=== PATIENT | female | born 1990 | race Caucasian/White ===

== ENCOUNTER 2017-10-13 02:10 | Emergency (ER) | payer OTHER ==
[2017-10-13 03:08] VITALS: BP 107/75; PULSE 89; TEMP 97.3; BMI 33.9
[2017-10-13] MEDS ORDERED: ONDANSETRON 4 MG/2 ML VIAL IVPUSH ONE (03:11)
[2017-10-13] MEDS ORDERED: SODIUM CHLORIDE 1,000 ML IV STA (03:11)
--- NOTE | 2017-10-13 03:11 | PDOC ---
History of Present Illness - General Chief Complaint: Nausea/Vomiting Stated Complaint: VOMITING,CHILLS Time Seen by Provider: 10/13/17 02:51 History Source: Patient Exam Limitations: No Limitations - History of Present Illness Travel History: No Initial Comments: 10/13/17 03:22 This is a 27-year-old woman without significant past medical history who presents emergency Department with nausea and vomiting status post drinking today. She reports she had a couple glasses wine followed by a couple of beers followed by hard liquor. At that point she began to feel nauseous and started vomiting clear liquids. She denies any blood or bile noted in the vomitus. Patient has not tried to eat since vomiting earlier tonight. Patient is accompanied emergency department by her significant other who does not drink. Past History - Past Medical History Allergies/Adverse Reactions: Allergies Allergy/AdvReac Type Severity Reaction Status Date / Time No Known Allergies Allergy Verified 10/13/17 03:08 - Suicide/Smoking/Psychosocial Hx Smoking History: Never smoked Have you smoked in the past 12 months: No Information on smoking cessation initiated: No Hx Alcohol Use: No Drug/Substance Use Hx: No Review of Systems - Review of Systems Able to Perform ROS?: Yes Is the patient limited [place]ian proficient: No Constitutional: No: Symptoms Reported HEENTM: No: Symptoms Reported Respiratory: No: Symptoms reported Cardiac (ROS): No: Symptoms Reported ABD/GI: Yes: See HPI : No: Symptoms Reported Musculoskeletal: No: Symptoms Reported Integumentary: No: Symptoms Reported Neurological: No: Symptoms reported *Physical Exam - Vital Signs Last Vital Signs Temp Pulse Resp BP Pulse Ox 97.3 F L 89 18 107/75 98 10/13/17 03:05 10/13/17 03:05 10/13/17 03:05 10/13/17 03:05 10/13/17 03:05 - Physical Exam General Appearance: Yes: Appropriately Dressed. No: Apparent Distress HEENT: positive: Normal ENT Inspection Neck: positive: Trachea midline, Supple Respiratory/Chest: positive: Lungs Clear, Normal Breath Sounds. negative: Respiratory Distress, Accessory Muscle Use Cardiovascular: positive: Regular Rhythm, Regular Rate. negative: Murmur Gastrointestinal/Abdominal: positive: Normal Bowel Sounds, Soft. negative: Tender Neurologic: positive: Fully Oriented, Alert, Normal Response Medical Decision Making - Medical Decision Making 10/13/17 03:25 A/P: 27-year-old woman with nausea and vomiting status post excessive alcohol intake Abdomen soft nontender nondistended Lungs clear to auscultation bilaterally Normal saline 1 L IV now Zofran 4 mg IV now PO trial Discharge 10/13/17 05:09 Patient states she feels better after receiving IV fluids and Zofran. Able to tolerate oral intake without difficulty. I will discharge the patient home with her significant other was currently not intoxicated. *DC/Admit/Observation/Transfer Diagnosis at time of Disposition: Nausea and vomiting in adult patient - Discharge Dispostion Disposition: HOME Condition at time of disposition: Fair Decision to Admit order: No - Referrals Referrals: Sherry Simms MD [Primary Care Provider] - - Patient Instructions Additional Instructions: Drink alcohol in moderation. Keep well-hydrated. Eat a well-balanced diet. Return to emergency department for any new or worsening symptoms. Thank you very much her choosing to provide emergent health care needs. - Post Discharge Activity
--- NOTE | 2017-10-13 04:00 | PDOC ---
*Physical Exam - Vital Signs Last Vital Signs Temp Pulse Resp BP Pulse Ox 97.3 F L 89 18 107/75 98 10/13/17 03:05 10/13/17 03:05 10/13/17 03:05 10/13/17 03:05 10/13/17 03:05 Medical Decision Making - Medical Decision Making 10/13/17 03:59 agree with care from ANUEL Rodriguez *DC/Admit/Observation/Transfer Diagnosis at time of Disposition: Nausea and vomiting in adult patient - Discharge Dispostion Disposition: HOME Condition at time of disposition: Fair - Referrals Referrals: Sherry Simms MD [Primary Care Provider] - - Patient Instructions Additional Instructions: Drink alcohol in moderation. Keep well-hydrated. Eat a well-balanced diet. Return to emergency department for any new or worsening symptoms. Thank you very much her choosing to provide emergent health care needs. - Post Discharge Activity
[2017-10-13] MEDS ORDERED: ONDANSETRON 4 MG/2 ML VIAL ONE (04:14)
== END 2017-10-13 05:24 | disposition home or self-care (01) ==
LOC: JER 02:10
PROC: 3E033GC Introduction of Other Therapeutic Substance into Peripheral Vein, Percutaneous Approach (ICD-10-PCS; principal; 2017-10-13)
PROC: 3E0337Z Introduction of Electrolytic and Water Balance Substance into Peripheral Vein, Percutaneous Approach (ICD-10-PCS; 2017-10-13)
DX: R11.2 Nausea with vomiting, unspecified (principal)
CPT/HCPCS: 96361; 96374; 99281-25; J7030